=== PATIENT | male | born 1975 | race Caucasian/White ===

== ENCOUNTER → 2019-01-02 | Outpatient (CLI) | payer OTHER ==
--- NOTE | 2019-01-02 16:31 | US ---
EXAMINATION TYPE: US abdomen limited DATE OF EXAM: 01/02/2019 COMPARISON: NONE CLINICAL HISTORY: R76.8 Other finding in Serum. Pt states testing +for Hep B, elevated LFT's, no othe r complaints at this time EXAM MEASUREMENTS: Liver Length: 17.3 cm Gallbladder Wall: 0.2 cm CBD: 0.4 cm Right Kidney: 10.9 x 4.3 x 4.5 cm Pancreas: wnl Liver: wnl Gallbladder: wnl Evidence for sonographic Oconnor's sign: No CBD: wnl Right Kidney: wnl IMPRESSION: 1. Hepatomegaly.
== END | disposition home or self-care (01) ==
LOC: RADUSWWP 07:29
PROVIDERS: ATTEND Internal Medicine Gastroenterology
DX: R16.0 Hepatomegaly, not elsewhere classified (principal)
CPT/HCPCS: 76705

== ENCOUNTER → 2019-05-22 | Outpatient (CLI) | payer BC ==
--- NOTE | 2019-05-23 17:07 | CT ---
EXAMINATION TYPE: CT soft tissue neck w con DATE OF EXAM: 05/22/2019 COMPARISON: None HISTORY: Right submandibular mass. BB placed on region of interest. CT DLP: 494.2 mGycm CONTRAST: CT scan of the neck is performed with IV Contrast, patient injected with 100ml mL of Isovue 300. Contrast enhanced CT of the neck was performed from the skull base through the lung apices. Marker wa s placed at the site of clinical concern which corresponds to the right submandibular region. AIRWAY: The supraglottic, glottic, and subglottic portions of the airway appear patent and free of mass. SALIVARY GLANDS: The submandibular and parotid glands are free of mass or inflammatory process. THYROID GLAND: No nodules or masses seen. LYMPH NODES: At The site of clinical concern there is a 9.8 mm lymph node identified. There are small er sub-8 mm lymph nodes identified within the internal jugular chains bilaterally as well as the post erior triangles. No adenopathy greater than 1 cm appreciated. LUNG APICES: No nodule or mass is seen. Upper lobe emphysematous changes noted. OTHER: Vascular structures are patent. No significant degenerative change of the cervical spine. N o abscess seen. IMPRESSION: At The site of clinical concern there is a 9.8 mm lymph node identified. There are smaller sub-8 mm l ymph nodes identified within the internal jugular chains bilaterally as well as the posterior triangl es. No adenopathy greater than 1 cm appreciated.
== END | disposition home or self-care (01) ==
LOC: RADCTMAIN 16:20
PROVIDERS: ATTEND Family Medicine
DX: R59.0 Localized enlarged lymph nodes (principal)
CPT/HCPCS: 70491; Q9967

== ENCOUNTER 2021-01-26 11:05 | Observation (INO) | payer BC ==
[2021-01-26] MEDS ORDERED: HEPARIN SODIUM 1,000 UN/ML (10ML VL) ONE (11:56)
[2021-01-26] MEDS ORDERED: VERAPAMIL 2.5 MG/ML 2 ML AMP ONE (11:56)
[2021-01-26] MEDS ORDERED: LIDOCAINE 1% INJ 10MG/ML (20 ML MDV) ONE (11:56)
[2021-01-26] MEDS ORDERED: MIDAZOLAM 2 MG/2 ML VIAL IVP ONE (12:25)
[2021-01-26] MEDS ORDERED: LIDOCAINE 1% INJ 10MG/ML (10 ML MDV) SQ ONE (12:26)
[2021-01-26] MEDS ORDERED: VERAPAMIL SYRINGE (5 MG/10 ML) INTRAARTER ONE (12:28)
[2021-01-26] MEDS ORDERED: HEPARIN SODIUM 1,000 UN/ML (10ML VL) IV ONE (12:29)
[2021-01-26] MEDS ORDERED: IV FLUID CONTINUATION 1,000 ML IV ONE (12:30)
[2021-01-26] MEDS ORDERED: NITROGLYCERIN 1000MCG/10ML SYRINGE INTRACORON ONE (12:38)
[2021-01-26] MEDS ORDERED: IOPAMIDOL-370 125ML BTL INJ ONE (12:47)
[2021-01-26] MEDS ORDERED: ZOLPIDEM 5 MG TAB PO PRN (12:56)
[2021-01-26] MEDS ORDERED: ATROPINE SULFATE 0.1 MG/ML 10ML SYRINGE IV PRN (12:56)
[2021-01-26] MEDS ORDERED: NITROGLYCERIN SL TABS 0.4 MG TAB SUBLINGUAL PRN (12:56)
[2021-01-26] MEDS ORDERED: RX INFO: IV CONTRAST WAS GIVEN 1 EACH MISC MISCELLANE PRN (12:56)
[2021-01-26] MEDS ORDERED: MAG HYDROX/AL HYDROX/SIMETH 30 ML CUP PO PRN (12:56)
[2021-01-26] MEDS ORDERED: SODIUM CHLORIDE 0.9% 1,000 ML IV SCH (13:00)
--- NOTE | 2021-01-26 16:24 | PTCA ---
PERCUTANEOUSTRANS CORORONARY ANGIOGRAPHY Mr. Mendoza is a 45-year-old male with a strong family history of coronary artery disease and prior history of smoking, which he stopped 2 years ago, who presented with symptoms of chest discomfort to [facility] and was found to have evidence consistent with unstable angina. He underwent cardiac catheterization that revealed a critical stenosis involving the mid LAD. He was transferred to [facility] to undergo further evaluation. The procedure, its risks and complications were discussed with the patient, who was in full understanding and agreement. PROCEDURE DESCRIPTION: Patient was brought to the slab lifting engineer in a fasting, semi-sedated state after receiving Versed and Benadryl and achieving a moderate conscious sedated state. Using guidewire exchange technique, the 6-Senegalese sheath in the right radial artery was exchanged for a new 6-Senegalese sheath. Following that, a 6-Senegalese FL3.5 bend guiding catheter was introduced in the system. After cannulating the left main, a 0.014 balanced medium weight J-wire was advanced across the lesion, positioned distally, and then a 2.5 x 12 mm NC Trek balloon was advanced and one inflation at 8 atmospheres was done. Following that, the balloon was removed and a 3.0 x 18 mm Xience Skypoint stent was advanced, deployed and post-dilated at 16 atmospheres. After the last inflation, after appropriate wait, the balloon and the guidewire were withdrawn back into the guiding catheter. Images were obtained and repeated. Those images revealed stable successful stenting. At that point, the guiding catheter, the balloon and the guidewire were removed. The sheath was removed. Hemostasis was obtained with deployment of a TR band. There was no immediate complication. The patient was returned to his room in stable condition. Of note, the patient received 5500 units of intravenous heparin. His ACT was followed. He has received an oral loading dose of clopidogrel. He had no chest discomfort with the inflation, with mild EKG changes that resolved at the end of the procedure. RESULT: Successful stenting of the mid LAD with reduction of stenosis from 99% to 0%. RECOMMENDATIONS: Patient will be continued on aspirin, Plavix and statin. The importance of dual antiplatelet treatment was discussed with the patient and his family, who are in full understanding and agreement. Duration of sedation was 23 minutes. MMODL / IJN: [id number] / [facility]ITALDayan
[2021-01-26] MEDS ORDERED: ATORVASTATIN 80 MG TAB PO SCH (21:00)
[2021-01-27 03:27] VITALS: RESP 16
[2021-01-27 07:03] LABS: African American GFR (CKD) >90 (>60 ml/min/1.73 sqM); Anion Gap 7 mmol/L; Blood Urea Nitrogen 18 mg/dL (9-20); Calcium 9.6 mg/dL (8.4-10.2); Carbon Dioxide 27 mmol/L (22-30); Chloride 104 mmol/L (98-107); Glucose 98 mg/dL (74-99); Non-African American GFR(CKD) >90 (>60 ml/min/1.73 sqM); Potassium 4.4 mmol/L (3.5-5.1); Sodium 138 mmol/L (137-145)
[2021-01-27 08:03] VITALS: BP 111/69; PULSE 66; TEMP 98.1
[2021-01-27] MEDS ORDERED: ASPIRIN 81 MG PO SCH (09:00)
[2021-01-27] MEDS ORDERED: CLOPIDOGREL 75 MG TAB PO SCH (09:00)
[2021-01-27] MEDS ORDERED: PANTOPRAZOLE 40 MG TABLET PO PRN (09:34)
[2021-01-27 11:02] LABS: Chol/HDL Ratio 4.83 Ratio; HDL Cholesterol 43.7 mg/dL (40.00-60.00); LDL Cholesterol,Calculated 141.5 mg/dL (0.0-131.0); VLDL Calculation 25.8 mg/dL (5.00-40.00)
--- NOTE | 2021-01-27 12:08 | P.PN ---
Subjective Progress Note Date: 01/27/21 Principal diagnosis: Coronary artery disease The patient is a pleasant 45-year-old gentleman who presented to [facility] with a chest discomfort consistent was unstable angina. He underwent heart catheterization by Dr. Gonsalez and was found to have critical disease involving the mid LAD. Subsequent to the patient was transferred to [facility] where he underwent stenting of the LAD. He was seen this morning. His chest pain-free. The right radial access is soft and nontender with a good pulse. From the cardiovascular standpoint of view, the patient can be discharged home. Objective - Vital Signs Vital signs: Vital Signs Temp 98.1 F 01/27/21 08:00 Pulse 66 01/27/21 08:00 Resp 16 01/27/21 08:00 BP 111/69 01/27/21 08:00 Pulse Ox 97 01/27/21 08:00 Intake & Output 01/26/21 01/27/21 01/27/21 18:59 06:59 18:59 Intake Total 320 Balance 320 Weight 90 kg 89.9 kg Intake: IV 50 Intake, IV Titration 150 Amount Sodium Chloride 0.9% 1, 150 000 ml @ 75 mls/hr IV . [id number] STEPHANIE Rx#:[id number] Oral 120 Other: # Voids 1 - Constitutional General appearance: Present: no acute distress - Respiratory Respiratory: bilateral: CTA - Cardiovascular Rhythm: regular Heart sounds: normal: S1, S2 - Labs CBC & Chem 7: 01/27/21 06:16 Labs: Abnormal Lab Results - Last 24 Hours (Table) 01/27/21 Range/Units 06:16 Cholesterol 211.00 H (0.00-200.00) mg/dL LDL Cholesterol, Calc 141.5 H (0.0-131.0) mg/dL Assessment and Plan Assessment: Assessment #1 coronary artery disease and status post PCI of the LAD #2 hypertension #3 dyslipidemia Plan #1 the patient can be discharged home #2 continue dual antiplatelet therapy and statin #3 follow-up with the patient
--- NOTE | 2021-01-27 17:23 | P.HPIM ---
History of Present Illness H&P Date: 01/27/21 Chief Complaint: Chest pain This is a pleasant 45-year-old patient who presented initially to [facility]. He developed pain across the chest when he woke up and it progressed in the daytime. Pain also been on the left arm. There is no dizziness or lightheadedness aspiration. Patient had been feeling about weak for about a week. Patient is admitted at the [facility] with unstable angina. Troponin was negative. Cardiac Showed and 90-95% lesion of the mid LAD. Patient was transferred here. Successful angioplasty stenting was carried out. This morning no chest pain or shortness breath. Review of systems: GEN.: Tired EYES: None HEENT: None NECK: None RESPIRATORY: None CARDIOVASCULAR: As above GASTROINTESTINAL: Heartburn GENITOURINARY: None MUSCULOSKELETAL: None LYMPHATICS: None HEMATOLOGICAL: None PSYCHIATRY: None NEUROLOGICAL: None Past medical history to include: Unremarkable Social history: . 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 Smoked a pack a day for 28 years stopped 2 months ago. Alcohol occasionally. 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 Family history: CAD Physical examination: VITAL SIGNS: 98.4, 65, 16, 116 x 74, 96% room air GENERAL: BMI 31, sitting up, comfortable. EYES: Pupils equal. Conjunctiva normal. HEENT: External appearance of nose and ears normal, oral cavity grossly normal. NECK: JVD not raised; masses not palpable. HEART: First and second heart sounds are normal; no edema. LUNGS: Respiratory rate normal; clear to auscultation. ABDOMEN: Soft, nontender, liver spleen not palpable, no masses palpable. PSYCH: Alert and oriented x3; mood and affect normal. NEUROLOGICAL: Cranial nerves grossly intact; no facial asymmetry, power and sensation grossly intact. LYMPHATICS: No lymph nodes palpable in the axilla and neck INVESTIGATIONS, reviewed in the clinical context: From [facility]: EKG tracing personally reviewed by me: Sinus rhythm. White count 4.8 hemoglobin 15.7 platelets 189 creatinine 0.9 potassium 4.1 LDL 159 Assessment and plan: -Unstable angina -Coronary artery disease with 90-95% lesion LAD Successful angioplasty and stenting -Obesity BMI 31 Weight loss measures -Hyperlipidemia Lipitor Patient on Plavix, aspirin, Lipitor, being followed by cardiology. Care was discussed with the patient. Past Medical History Past Medical History: Myocardial Infarction (HI) Last Myocardial Infarction Date:: 01/26/21 History of Any Multi-Drug Resistant Organisms: None Reported Past Surgical History: Heart Catheterization With Stent Past Anesthesia/Blood Transfusion Reactions: No Reported Reaction Date of Last Stent Placement:: 01/26/21 Smoking Status: Former smoker - Past Family History Father Family Medical History: Myocardial Infarction (HI) Medications and Allergies Home Medications Medication Instructions Recorded Confirmed Type Aspirin 81 mg PO DAILY 30 Days #30 tab 01/27/21 Rx Atorvastatin [Lipitor] 80 mg PO HS 30 Days #30 tab 01/27/21 Rx Clopidogrel [Plavix] 75 mg PO DAILY 30 Days #30 tab 01/27/21 Rx Nitroglycerin Sl Tabs [Nitrostat] 0.4 mg SUBLINGUAL Q5M PRN #25 tab 01/27/21 Rx Omeprazole Magnesium [PriLOSEC OTC] 20 mg PO HS PRN #30 tab 01/27/21 Rx Allergies Allergy/AdvReac Type Severity Reaction Status Date / Time No Known Allergies Allergy Verified 01/26/21 16:16 Physical Exam Vitals: Vital Signs Temp Pulse Resp BP Pulse Ox 01/27/21 08:00 98.1 F 66 16 111/69 97 01/27/21 03:00 98.4 F 65 16 116/74 96 01/26/21 23:45 98.4 F 65 14 113/75 95 01/26/21 20:00 98.6 F 66 18 126/86 96 01/26/21 16:41 73 20 123/88 95 01/26/21 15:58 98.5 F 65 20 127/85 96 01/26/21 14:33 72 16 122/87 95 01/26/21 14:03 74 16 115/76 94 L 01/26/21 13:33 74 16 120/79 95 01/26/21 13:12 70 16 137/76 01/26/21 13:03 85 16 170/103 Intake and Output 01/26/21 01/27/21 01/27/21 22:59 06:59 14:59 Intake Total 270 Balance 270 Intake: Intake, IV Titration 150 Amount Sodium Chloride 0.9% 1, 150 000 ml @ 75 mls/hr IV . [id number] STEPHANIE Rx#:[id number] Oral 120 Other: # Voids 1 Weight 90 kg 89.9 kg Results CBC & Chem 7: 01/27/21 06:16 Thrombosis Risk Factor Assmnt - Choose All That Apply Each Factor Represents 1 point: Acute HI, Age 41-60 years Thrombosis Risk Factor Assessment Total Risk Factor Score: 2 Thrombosis Risk Factor Assessment Level: Low Risk
--- NOTE | 2021-01-27 17:24 | P.DS ---
Providers Date of admission: 01/26/21 11:17 Expected date of discharge: 01/27/21 Attending physician: Louie Chaudhary Consults: 01/26/21 12:56 Consult Physician Routine Consulting Provider: [facility] Consult Reason/Comments: Post Interventional patient Do you want consulting provider notified?: Already Contacted Primary care physician: Stated None Hospital Course: Chief Complaint: Chest pain This is a pleasant 45-year-old patient who presented initially to [facility]. He developed pain across the chest when he woke up and it progressed in the daytime. Pain also been on the left arm. There is no dizziness or lightheadedness aspiration. Patient had been feeling about weak for about a week. Patient is admitted at the [facility] with unstable angina. Troponin was negative. Cardiac Showed and 90-95% lesion of the mid LAD. Patient was transferred here. Successful angioplasty stenting was carried out. This morning no chest pain or shortness breath. Cleared by currently for discharge. Consultation: Dr. 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 Smoked a pack a day for 28 years stopped 2 months ago. Alcohol occasionally. 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 Family history: CAD Physical examination: VITAL SIGNS: 98.4, 65, 16, 116 x 74, 96% room air GENERAL: BMI 31, sitting up, comfortable. EYES: Pupils equal. Conjunctiva normal. HEENT: External appearance of nose and ears normal, oral cavity grossly normal. NECK: JVD not raised; masses not palpable. HEART: First and second heart sounds are normal; no edema. LUNGS: Respiratory rate normal; clear to auscultation. ABDOMEN: Soft, nontender, liver spleen not palpable, no masses palpable. PSYCH: Alert and oriented x3; mood and affect normal. NEUROLOGICAL: Cranial nerves grossly intact; no facial asymmetry, power and sensation grossly intact. LYMPHATICS: No lymph nodes palpable in the axilla and neck INVESTIGATIONS, reviewed in the clinical context: From [facility]: EKG tracing personally reviewed by me: Sinus rhythm. White count 4.8 hemoglobin 15.7 platelets 189 creatinine 0.9 potassium 4.1 LDL 159 Assessment and plan: -Unstable angina -Coronary artery disease with 90-95% lesion LAD Successful angioplasty and stenting -Obesity BMI 31 Weight loss measures -Hyperlipidemia Lipitor Disposition: Home Plan - Discharge Summary Discharge Rx Participant: Yes New Discharge Prescriptions: New Aspirin 81 mg PO DAILY 30 Days #30 tab Clopidogrel [Plavix] 75 mg PO DAILY 30 Days #30 tab Atorvastatin [Lipitor] 80 mg PO HS 30 Days #30 tab Nitroglycerin Sl Tabs [Nitrostat] 0.4 mg SUBLINGUAL Q5M PRN #25 tab PRN Reason: Chest Pain Changed Omeprazole Magnesium [PriLOSEC OTC] 20 mg PO HS PRN #30 tab PRN Reason: Heartburn Discharge Medication List Aspirin 81 mg PO DAILY 30 Days #30 tab 01/27/21 [Rx] Atorvastatin [Lipitor] 80 mg PO HS 30 Days #30 tab 01/27/21 [Rx] Clopidogrel [Plavix] 75 mg PO DAILY 30 Days #30 tab 01/27/21 [Rx] Nitroglycerin Sl Tabs [Nitrostat] 0.4 mg SUBLINGUAL Q5M PRN #25 tab 01/27/21 [Rx] Omeprazole Magnesium [PriLOSEC OTC] 20 mg PO HS PRN #30 tab 01/27/21 [Rx] Follow up Appointment(s)/Referral(s): Kris Wu MD [REFERRING] - 1 Week Betsy Gonsalez MD [STAFF PHYSICIAN] - 02/02/21 4:00 pm Patient Instructions/Handouts: Left Heart Catheterization (DC) Discharge Disposition: HOME SELF-CARE
== END 2021-01-27 10:47 | disposition home or self-care (01) ==
LOC: 3SCARD 11:17 → INTOOBSV 11:17 → 3SCARD 15:25 → UNDODISIN 01-27 10:47
PROVIDERS: ADMIT Family Medicine; ATTEND Family Medicine
DX: I25.110 Atherosclerotic heart disease of native coronary artery with unstable angina pectoris (principal); I25.2 Old myocardial infarction; E66.9 Obesity, unspecified; Z68.31 Body mass index [BMI] 31.0-31.9, adult; E78.5 Hyperlipidemia, unspecified; I10 Essential (primary) hypertension; Z95.5 Presence of coronary angioplasty implant and graft; Z87.891 Personal history of nicotine dependence; Z79.82 Long term (current) use of aspirin; Z79.899 Other long term (current) drug therapy; Z79.02 Long term (current) use of antithrombotics/antiplatelets; Z82.49 Family history of ischemic heart disease and other diseases of the circulatory system
CPT/HCPCS: 80061; 80048; G0378 ×2; G0379; C9600; C1769 ×2; C1887; C1894; C1725; C1874; J2250; J1644; J2001; Q9967

== ENCOUNTER → 2022-01-03 | Outpatient (CLI) | payer BC ==
[~2022-01-03] MED LIST: BEBTELOVIMAB (EUA) 175 MG/2 ML VIAL IV ONE; SODIUM CHLORIDE 0.9% 500 ML 500 ML in EMPTY BAG 1 BAG IV PRN
[2022-01-03 14:05] VITALS: TEMP 98.4
[2022-01-03 14:18] VITALS: BP 103/69; PULSE 59; RESP 16
== END ==
LOC: PROCWHC3 12:53
PROVIDERS: ATTEND Physician Assistant Medical
DX: U07.1 COVID-19 (principal); E66.9 Obesity, unspecified; Z68.32 Body mass index [BMI] 32.0-32.9, adult
CPT/HCPCS: Q0222; M0222